=== PATIENT | female | born 1990 | race Caucasian/White ===

== ENCOUNTER 2021-01-06 07:53 | Emergency (ER) | payer SELFPAY ==
[~2021-01-06] VITALS: Ht 170.2 cm; Wt 59.0 kg
[2021-01-06] MEDS ORDERED: CASIRIVIMAB/IMDEVIMAB 10 ML in SODIUM CHLORIDE 0.9% 100 ML IV ONE (08:15)
== END 2021-01-06 08:55 | disposition home or self-care (01) ==
LOC: ER 08:04
DX: R50.9 Fever, unspecified (principal); U07.1 COVID-19
CPT/HCPCS: 99282

== ENCOUNTER → 2021-02-19 | Outpatient (CLI) | payer BC, OTHER | LOC: VACCPMC 09:57 | DX: Z23 Encounter for immunization (principal); Z20.822 Contact with and (suspected) exposure to COVID-19 ==